=== PATIENT | female | born 1960 | race Caucasian/White ===

== ENCOUNTER 2017-03-05 10:15 | Outpatient (CLI) | payer BC | END 2017-03-05 23:59 | disposition home or self-care (01) | LOC: RAD 10:15 | PROVIDERS: ATTEND Family Medicine | DX: E07.9 Disorder of thyroid, unspecified (principal) ==

== ENCOUNTER → 2018-06-04 | Outpatient (CLI) | payer BC, OTHER ==
[2018-06-05 05:06] LABS: HEPATITIS A AB, TOTAL Positive (Negative)
[2018-06-05 08:06] LABS: VARICELLA ZOSTER IgG 1459 index (Immune >165)
== END | disposition home or self-care (01) ==
LOC: LAB 07:38
PROVIDERS: ATTEND Family Medicine
DX: Z11.59 Encounter for screening for other viral diseases (principal); R21 Rash and other nonspecific skin eruption
CPT/HCPCS: 36415; 86708; 86803

== ENCOUNTER 2019-01-21 11:34 | Emergency (ER) | payer BC, OTHER ==
[~2019-01-21] VITALS: Ht 157.5 cm; Wt 70.3 kg
[2019-01-21 12:36] VITALS: BP 128/81
== END 2019-01-21 12:36 | disposition home or self-care (01) ==
LOC: ER 11:34
DX: M75.32 Calcific tendinitis of left shoulder (principal)
CPT/HCPCS: 73030; A4663